=== PATIENT | female | born 1965 | race Caucasian/White ===

== ENCOUNTER → 2016-10-03 | Outpatient (CLI) | payer OTHER ==
[~2016-10-03] MED LIST: ALBUTEROL0.63 MG/3 INH; ARMOUR THYROID30 MG PO; ASPIRIN325 MG PO; HUMALOG100 UNIT/1 SC; HYDROCHLOROTHIA25 MG PO; KLONOPIN TAB 00.5 MG PO; LANTUS100 UNIT/1 SC; LISINOPRIL20 MG PO; MOBIC7.5 MG PO; NEURONTIN 400400 MG PO; NITROSTAT0.4 MG SL; OXYCODONE-ACET1 EACH PO; PULMICORT0.25 MG/1 INH; TENORMIN 25 MG25 MG PO; VOLTAREN EC 5050 MG PO; VOLTAREN100 GM TOP; ZOCOR 40 MG TAB40 MG PO
== END ==
LOC: EMI 12:53
DX: M54.5 Low back pain (principal); F40.10 Social phobia, unspecified; R32 Unspecified urinary incontinence; S30.0XXA Contusion of lower back and pelvis, initial encounter; W19.XXXA Unspecified fall, initial encounter; M51.37 Other intervertebral disc degeneration, lumbosacral region; Z91.041 Radiographic dye allergy status; Z91.013 Allergy to seafood; Z91.018 Allergy to other foods; Z91.040 Latex allergy status
CPT/HCPCS: 72148

== ENCOUNTER → 2020-10-06 | Outpatient (CLI) | payer OTHER ==
[~2020-10-06] MED LIST changes: +BACTRIM DS TAB1 EACH PO; +KEFLEX CAP 500500 MG PO
[2020-10-06 14:02] LABS: BUN/CREATININE RATIO 20 (0-10)
[2020-10-07 07:11] LABS: VITAMIN D, 25-HYDROXY 70.7 ng/mL (30.0-100.0)
[2020-10-07 08:14] LABS: RHEUMATOID ARTHRITIS FACTOR 13.5 IU/mL (0.0-13.9)
== END ==
LOC: LAB 12:34
PROVIDERS: Internal Medicine
DX: M79.642 Pain in left hand (principal); M79.641 Pain in right hand; D89.89 Other specified disorders involving the immune mechanism, not elsewhere classified; R76.8 Other specified abnormal immunological findings in serum; R53.83 Other fatigue; E55.9 Vitamin D deficiency, unspecified; Z79.1 Long term (current) use of non-steroidal anti-inflammatories (NSAID); M19.041 Primary osteoarthritis, right hand; M19.042 Primary osteoarthritis, left hand
CPT/HCPCS: 36415; 73130; 80053; 82728; 83520; 86200; 86431